=== PATIENT | female | born 1980 | race Caucasian/White ===

== ENCOUNTER → 2020-04-17 13:31 | Outpatient (BNVA) | payer BC, SELFPAY | PROVIDERS: Family Provider Family Medicine; PCP Family Medicine; Visit Provider Family Medicine | DX: T14.8XXA Other injury of unspecified body region, initial encounter (principal); W57.XXXA Bitten or stung by nonvenomous insect and other nonvenomous arthropods, initial encounter | CPT/HCPCS: 86618; 86666; 86757 ==

== ENCOUNTER → 2020-04-20 14:07 | Outpatient (BNVA) | payer BC, SELFPAY | PROVIDERS: Family Provider Family Medicine; PCP Family Medicine; Visit Provider Family Medicine | DX: R30.0 Dysuria (principal) | CPT/HCPCS: 81000 ==

== ENCOUNTER → 2020-06-20 17:13 | Outpatient (BNVA) | payer BC, SELFPAY | PROVIDERS: Family Provider Family Medicine; PCP Family Medicine; Visit Provider Nurse Practitioner Family | DX: R50.9 Fever, unspecified (principal); Z20.828 Contact with and (suspected) exposure to other viral communicable diseases | CPT/HCPCS: 80053; 85025; 85651; 86140; 86618; 86666; 86757; 87635 ==

== ENCOUNTER → 2022-03-27 15:48 | Outpatient (BNVA) | payer BC, SELFPAY | PROVIDERS: Family Provider Family Medicine; PCP Family Medicine; Visit Provider Family Medicine | DX: R35.0 Frequency of micturition (principal); M54.2 Cervicalgia; N39.0 Urinary tract infection, site not specified; F41.8 Other specified anxiety disorders | CPT/HCPCS: 81003; 87077; 87086; 87184 ==

== ENCOUNTER → 2022-08-12 15:44 | Outpatient (BNVA) | payer BC, SELFPAY | PROVIDERS: Family Provider Family Medicine; PCP Family Medicine; Visit Provider Nurse Practitioner Family | DX: R05.9 Cough, unspecified (principal); R50.9 Fever, unspecified; J02.9 Acute pharyngitis, unspecified; J40 Bronchitis, not specified as acute or chronic | CPT/HCPCS: 87071; 87400; 87880 ==

== ENCOUNTER → 2022-10-17 14:44 | Outpatient (BNVA) | payer BC, SELFPAY | PROVIDERS: Family Provider Family Medicine; PCP Family Medicine; Visit Provider Nurse Practitioner Family | DX: R30.0 Dysuria (principal); N39.0 Urinary tract infection, site not specified | CPT/HCPCS: 81000 ==

== ENCOUNTER → 2024-04-25 16:40 | Outpatient (BNVA) | payer OTHER, SELFPAY | PROVIDERS: Family Provider Family Medicine; PCP Family Medicine; Visit Provider Nurse Practitioner Family | DX: N39.0 Urinary tract infection, site not specified (principal) | CPT/HCPCS: 81003 ==

== ENCOUNTER → 2024-06-08 08:34 | Outpatient (BNVA) | payer OTHER, SELFPAY | PROVIDERS: Family Provider Family Medicine; PCP Family Medicine; Visit Provider Nurse Practitioner Family | DX: N39.0 Urinary tract infection, site not specified (principal) | CPT/HCPCS: 81015; 87077; 87086; 87184 ==

== ENCOUNTER → 2024-08-24 08:30 | Outpatient (BNVA) | payer OTHER, SELFPAY | PROVIDERS: Family Provider Family Medicine; PCP Family Medicine; Visit Provider Nurse Practitioner Family | DX: N30.01 Acute cystitis with hematuria (principal); R63.4 Abnormal weight loss | CPT/HCPCS: 80053; 80061; 81003; 82607; 84443; 85025; 87077; 87086; 87184 ==

== ENCOUNTER 2024-12-05 03:38 | Emergency (ER) | payer OTHER, SELFPAY ==
[2024-12-05 04:09] VITALS: BP 114/59; PULSE 78; RESP 17; O2SAT 99; BMI 19.6
[2024-12-05 04:12] VITALS: BP 114/59; PULSE 84; RESP 17; TEMP 36.3; O2SAT 96; BMI 19.6
[2024-12-05 04:36] VITALS: RESP 18; O2SAT 98
[2024-12-05] MEDS: morphine 4 mg/mL SDV 1 mL IVP (04:36)
[2024-12-05] MEDS: ondansetron 2 mg/ML SDV 2 mL 8 MG IVP (04:36)
[2024-12-05] MEDS: sodium chloride 0.9% 1,000 ML 999 ML IV (04:37)
--- NOTE | 2024-12-05 04:37 | ED_ITS ---
HPI - Abdominal Pain 2 General: Chief Complaint: Abdominal Pain Stated Complaint: Vomiting\Fever\Conjested Time Seen by Provider: 12/05/24 04:07 History of Present Illness: 44-year-old female complaining of genera lized abdominal pain, multiple episodes of vomiting since around 10 PM last night. She has vomited several times. No diarrhea. No fever. No cough or congestion. She has a history of a cholecystectomy. Related Data Previous Rx's ?Medication ?Instructions ?Recorded fluconazole 150 mg tablet 150 mg PO Q3D 3 doses #3 tab s 08/24/24 nitrofurantoin 100 mg PO Q12H 7 days #14 ca ps 08/24/24 monohydrate/macrocrystals 100 mg capsule (Macrobid) tizanidine 4 mg capsule 4 mg PO BID PRN muscle spast icity 08/24/24 #60 caps ondansetron 4 mg disintegrating 4 mg PO Q6H PRN nausea and 12/05/24 tablet vomiting #14 tabs Allergies Allergy/AdvReac Type Severity Reaction Status Date / Time Sulfa (Sulfonamide Allergy Unknown Verified 12/05/24 04:14 Antibiotics) PFSH ED 2 PFSH: Medical History Hx of mitral valve insufficiency Depression with anxiety Social History Smoking and tobacco/nicotine status: never used tobacco/nicotine Second hand smoke exposure: No Alcohol intake: never Substance/Drug Use: never Lives independently: Yes Household members: spouse Marital status: service: No Current occupational status: employed Current occupation: [employer] Current gender identity: Female Physical Exam 2 Const: GENERAL APPEARANCE: cooperative and ill appearing; not frail appearing HENMT: COMMON NORMALS: normocephalic, atraumatic and Normal external nose present HEAD & SCALP: normocephalic and atraumatic FACE & SINUS: normal facial exam and face symmetric NOSE: Normal external nose present Eye: COMMON NORMALS: Equal, round and reactive pupils present and EOMs intact bilaterally PUPIL: Yes Equal, round and reactive pupils present Neck/C-Spine: GENERAL: Yes trachea midline Chest: CHEST: Yes Symmetrical chest wall rise Resp: COMMON NORMALS: normal respiratory effort, No retractions, No use of accessory muscles and clear to auscultation bilaterally AUSCULTATION: clear to auscultation bilaterally Cardio: COMMON NORMALS: regular rate and regular rhythm RATE: regular rate RHYTHM: regular rhythm GI: COMMON NORMALS: Normal to inspection, nondistended, normoactive bowel sounds present PALPATION: Yes Tenderness to palpation present (GI) (Generalized) Extremity: COMMON NORMALS: no pedal edema Neuro: NGA COMA SCALE: document GCS findings [place] coma scale eye opening: Spontaneous Nga coma scale verbal response: Orientated Nga coma scale motor response: [place]bey commands [place] coma scale total score: 15 S ENSORY EXAM: Yes extremities (intact) Psych: COMMON NORMALS: speech normal SPEECH: Yes normal speech Skin: COMMON NORMALS: no rashes or lesions noted GENERAL SKIN EXAM: no rashes or lesions noted Course 2 Vital Signs: Vital signs: Vital Signs Temperature 97.3 F L 12/05/24 04:12 Pulse Rate 80 12/05/24 05:10 Respiratory Rate 16 12/05/24 05:10 Blood Pressure 121/72 12/05/24 05:10 Pulse Oximetry 100 12/05/24 05:10 Oxygen Delivery Me thod Room Air 12/05/24 05:10 MDM - Abdominal Pain Medical Decision Making 44-year-old female presenting with multiple episodes of vomiting. She received a liter of fluid, 8 mg of Zofran. She is feeling improved. Blood sugar 194. Otherwise laboratory not remarkable. Urinalysis is pending. Urinalysis shows hematuria. Patient is finishing her period she says. Lab Data 12/05/24 04:25 12/05/24 04:25 Labs/Radiology: Laboratory Results WBC 10.83 10^3/uL (3.29-11.43) 12/05/24 04:25 RBC 4.56 10^6/uL (3.85-5.65) 12/05/24 04:25 Hgb 13.40 g/dL (11.27-16.99) 12/05/24 04:25 Hct 40.1 % (36-47) 12/05/24 04:25 MCV 87.9 fl (85-98) 12/05/24 04:25 MCH 29.4 pg (27-33) 12/05/24 04:25 MCHC 33.4 g/dL (30-55) 12/05/24 04:25 RDW 12.8 % (12.1-15.1) 12/05/24 04:25 Plt Count 209 10^3/cmm (157-399) 12/05/24 04:25 MPV 12.0 fL (7.4-10.4) H 12/05/24 04:25 Neut % (Auto) 88.7 % 12/05/24 04:25 Lymph % (Auto) 4.2 % 12/05/24 04:25 [place] % (Auto) 6.6 % 12/05/24 04:25 Eos % (Auto) 0.0 % 12/05/24 04:25 Baso % (Auto) 0.3 % 12/05/24 04:25 Neut # (Auto) 9.60 10^3/uL (1.8-7.7) H 12/05/24 04:25 Lymph # (Auto) 0.5 10^3/uL (0.8-4.8) L 12/05/24 04:25 [place] # (Auto) 0.7 10^3/uL (0.2-0.9) 12/05/24 04:25 Eos # (Auto) 0.0 10^3/uL (0.0-0.8) 12/05/24 04:25 Baso # (Auto) 0.0 10^3/uL (0.0-0.1) 12/05/24 04:25 Nucleated RBC % (auto) 0 % 12/05/24 04:25 Nucleated RBCs # 0.0 /100WBC 12/05/24 04:25 Sodium 142 mmol/L (136-145) 12/05/24 04:25 Potassium 3.5 mmol/L (3.5-5.1) 12/05/24 04:25 Chloride 105 mmol/L (98-107) 12/05/24 04:25 Carbon Dioxide 25 mmol/L (22-29) 12/05/24 04:25 Anion Gap 15.5 (5-19) 12/05/24 04:25 BUN 11 mg/dL (6-20) 12/05/24 04:25 Creatinine 0.4 mg/dL (0.5-0.9) L 12/05/24 04:25 GFR Calculation 171.8 mL/min (90-130) H 12/05/24 04:25 Glucose 184 mg/dL (65-115) H 12/05/24 04:25 Calculated Osmolality 298 mOsm/kg (285-295) H 12/05/24 04:25 Calcium 8.6 mg/dL (8.5-10.5) 12/05/24 04:25 Total Bilirubin 0.6 mg/dL (0.15-1.2) 12/05/24 04:25 AST 14 U/L (0-32) 12/05/24 04:25 ALT 9 U/L (0-33) 12/05/24 04:25 Alkaline Phosphatase 58 U/L (35-105) 12/05/24 04:25 C-Reactive Protein 3.0 mg/L (0.0-4.9) 12/05/24 04:25 Total Protein 7.7 g/dL (6.6-8.7) 12/05/24 04:25 Albumin 4.5 g/dL (3.5-5.2) 12/05/24 04:25 Globulin 3.2 g/dL (1.3-4.6) 12/05/24 04:25 Lipase 29 U/L (13-60) 12/05/24 04:25 HCG, Qual Negative (Negative) 12/05/24 04:25 Urine Color Yellow (Yellow) 12/05/24 05:36 Urine Appearance Clear (CLEAR) 12/05/24 05:36 Urine pH 6.0 (5-7) 12/05/24 05:36 Ur Specific [place] 1.019 (1.005-1.030) 12/05/24 05:36 Urine Protein Negative (Negative) 12/05/24 05:36 Urine Glucose (UA) 2+ (Normal) H 12/05/24 05:36 Urine Ketones 1+ (Negative) H 12/05/24 05:36 Urine Blood 1+ (Negative) A 12/05/24 05:36 Urine Nitrate Negative (Negative) 12/05/24 05:36 Urine Bilirubin Negative (Negative) 12/05/24 05:36 Urine Urobilinogen 1.0 mg/dL (Negative) 12/05/24 05:36 Ur Leukocyte Esterase Negative (Negative) 12/05/24 05:36 Amorphous Sediment Not Reportable 12/05/24 05:36 Influenza A (PCR) Negative (Negative) 12/05/24 04:25 Influenza Type B (PCR) Negative (Negative) 12/05/24 04:25 RSV (PCR) Negative (Negative) 12/05/24 04:25 SARS-CoV-2 (PCR) Negative (Negative) 12/05/24 04:25 No radiology studies performed this visit Discharge Plan Discharge Patient Disposition: Home Clinical Impression: Gastroenteritis Condition: Stable Prescriptions: New ondansetron 4 mg tablet,disintegrating 4 mg PO Q6H PRN (Reason: nausea and vomiting) Qty: 14 0RF No Action fluconazole 150 mg tablet 150 mg PO Q3D Qty: 3 0RF Rx Instructions: may repeat second dose 72 hrs after first dose if symptoms persist nitrofurantoin monohyd/m-cryst [Macrobid] 100 mg capsule 100 mg PO Q12H 7 Days Qty: 14 1RF Rx Instructions: must administer with a meal/food tizanidine 4 mg capsule 4 mg PO BID PRN (Reason: muscle spasticity) Qty: 60 2RF Discharge Orders: Discharge ED (Routine); Ordered 12/05/24 Ordered By: Adebayo Flowers Referrals: Shira Bautista MD [Primary Care Provider] - 1-3 days Patient Instructions: Gastroenteritis (ED), Opioid Safety, Pain Management Activity Restrictions/Additional Instructions: Take nausea medication every 4 hours while awake whether you feel nauseated or not for the first 24 hours, then as needed. Liquids for at least 12 hours, then you may increase your diet slowly. Return for problems. Follow-up with your doctor this week. Print Language: Montenegrin Coding Level of Care Code ED Medical Office Assistant Instructor for Josh Espinoza
[2024-12-05 05:02] LABS: Basophils % 0.3 %; Hematocrit 40.1 % (36-47); Lymphocytes # 0.5 10^3/uL (0.8-4.8); Lymphocytes % 4.2 %; Mean Corpuscular HGB Conc 33.4 g/dL (30-55); Mean Corpuscular Hemoglobin 29.4 pg (27-33); Mean Corpuscular Volume 87.9 fl (85-98); Monocytes # 0.7 10^3/uL (0.2-0.9); Monocytes % 6.6 %; Neutrophils % 88.7 %; Nucleated Red Blood Cells % 0 %; Platelet Count 209 10^3/cmm (157-399); Red Blood Count 4.56 10^6/uL (3.85-5.65); Red Cell Distribution Width 12.8 % (12.1-15.1); White Blood Count 10.83 10^3/uL (3.29-11.43)
[2024-12-05 05:06] LABS: HCG, Serum Qual Negative (Negative)
[2024-12-05 05:10] VITALS: BP 121/72; PULSE 80; RESP 16; O2SAT 100
[2024-12-05 05:16] LABS: Alanine Aminotransferase 9 U/L (0-33); Albumin Level 4.5 g/dL (3.5-5.2); Alkaline Phosphatase 58 U/L (35-105); Blood Urea Nitrogen 11 mg/dL (6-20); Calcium 8.6 mg/dL (8.5-10.5); Carbon Dioxide 25 mmol/L (22-29); Chloride 105 mmol/L (98-107); Creatinine Clr Calc Pharmacy 194.6686; Globulin 3.2 g/dL (1.3-4.6); Glomerular Filtration Rate 171.8 mL/min (90-130); Glucose 184 mg/dL (65-115); Lipase 29 U/L (13-60); Osmolality Calculated 298 mOsm/kg (285-295); Sodium 142 mmol/L (136-145); Total Bilirubin 0.6 mg/dL (0.15-1.2); Total Protein 7.7 g/dL (6.6-8.7)
[2024-12-05 05:18] LABS: Anion Gap 15.5 (5-19); Aspartate Amino Transferase 14 U/L (0-32); Potassium 3.5 mmol/L (3.5-5.1)
[2024-12-05 05:44] LABS: Influenza A NEGATIVE (Negative); Influenza B NEGATIVE (Negative); Respiratory Syncytial Virus Ce NEGATIVE (Negative); SARS-CoV-2 PCR NEGATIVE (Negative)
[2024-12-05 05:47] LABS: Bilirubin Urine Negative (Negative); Blood Urine 1+ (Negative); Glucose Urine UA 2+ (Normal); Ketones Urine 1+ (Negative); Leukocyte Esterase Urine Negative (Negative); Nitrate Urine Negative (Negative); Protein Urine Negative (Negative); Specific Gravity, Urine 1.019 (1.005-1.030); Urine Appearance Clear (CLEAR); Urine Color Yellow (Yellow)
[2024-12-05 06:09] LABS: Add Urine Microscopic? YES; RBC Urine 0-4 /hpf (0-2)
[2024-12-05 06:10] LABS: Add Urine Culture? No; Bacteria Urine TRACE /hpf; Mucus Urine 1+ /hpf; Squamous Epithelial Cell Urine 0-4 /hpf (0-5); WBC Urine 0-4 /hpf (0-5)
[2024-12-05 06:17] VITALS: BP 104/63; PULSE 89; RESP 17; O2SAT 98
[2024-12-05] MEDS: promethazine 25 mg/mL SDV 1 mL IM (06:23)
--- NOTE | 2024-12-05 06:24 | PC.NURSE ---
pt was getting ready to go home when she started feeling nauseated again and eventually vomited. VORB Phenergan 25mg IM received from Dr. Flowers. Pt was good with receiving the med. Re-eval will be done in 20min.
[2024-12-05 06:48] VITALS: BP 102/72; PULSE 85; RESP 16; O2SAT 96
== END 2024-12-05 06:49 | disposition home or self-care (01) ==
PROVIDERS: Emergency Provider Emergency Medicine; PCP Family Medicine
DX: K52.9 Noninfective gastroenteritis and colitis, unspecified (principal); Z11.52 Encounter for screening for COVID-19
CPT/HCPCS: 36415; 80053; 81001; 83690; 84703; 85025; 86140; 87637; 96361; 96372; 96374; 96375; 99284; J2270; J2405; J2550; J7030

== ENCOUNTER → 2025-05-10 15:02 | Outpatient (BNVA) | payer SELFPAY | PROVIDERS: PCP Family Medicine; Visit Provider Obstetrics & Gynecology | DX: Z01.419 Encounter for gynecological examination (general) (routine) without abnormal findings (principal) | CPT/HCPCS: 87624 ==

== ENCOUNTER 2025-05-16 08:09 | Outpatient (CLI) | payer OTHER, SELFPAY ==
--- NOTE | 2025-05-16 08:00 | MM_ITS ---
WS: [id number] BILATERAL SCREENING DIGITAL TOMOSYNTHESIS MAMMOGRAM WITH CAD HISTORY: Z12.39 - Encounter for other screening for malignant neop... COMPARISON: 06/22/2023, 07/10/2022 Bilateral CC and MLO views with tomosynthesis and synthetic mammography submitted. Computer aided detection analyzed. Breast composition: There are scattered areas of fibroglandular density. No suspicious masses, microcalcifications or architectural distortion. MM/MM scr BI tomosynthesis [id number] IMPRESSION: BI-RADS: 1 - Negative. FOLLOW UP: 1 Year Follow-up
== END 2025-05-16 08:10 | disposition home or self-care (01) ==
LOC: RAD 08:10
PROVIDERS: PCP Family Medicine; Visit Provider Obstetrics & Gynecology
DX: Z12.31 Encounter for screening mammogram for malignant neoplasm of breast (principal); R92.323 Mammographic fibroglandular density, bilateral breasts
CPT/HCPCS: 77063; 77067

== ENCOUNTER → 2025-07-03 07:52 | Outpatient (BNVA) | payer OTHER, SELFPAY | PROVIDERS: PCP Family Medicine; Visit Provider Obstetrics & Gynecology | DX: Z87.42 Personal history of other diseases of the female genital tract (principal); R87.612 Low grade squamous intraepithelial lesion on cytologic smear of cervix (LGSIL) | CPT/HCPCS: 81025; 88305 ==

== ENCOUNTER → 2025-09-08 18:24 | Outpatient (BNVA) | payer OTHER, SELFPAY | PROVIDERS: PCP Family Medicine; Visit Provider Emergency Medicine | DX: R30.9 Painful micturition, unspecified (principal) | CPT/HCPCS: 81000; 87077; 87086; 87184 ==